=== PATIENT | female | born 1940 | race Caucasian/White ===

== ENCOUNTER 2021-07-07 08:23 | Day surgery (SDC) | payer MEDICARE, BC ==
[~2021-07-07] VITALS: Ht 157.5 cm; Wt 58.2 kg
[2021-07-07 08:38] VITALS: BP 192/82
[2021-07-07] MEDS ORDERED: ESOM40CA49 PO (08:54)
[2021-07-07] MEDS ORDERED: PRAV20TA4 PO (08:54)
[2021-07-07] MEDS ORDERED: ATEN-27 PO (08:54)
[2021-07-07] MEDS ORDERED: BUSP5TAB3 PO (08:54)
[2021-07-07] MEDS ORDERED: LISI5TAB22 PO (08:54)
[2021-07-07] MEDS ORDERED: LOPE-190 PO (08:54)
[2021-07-07] MEDS ORDERED: fentaNYL/PF 50MCG/1 ML 2ML syringe ONE (08:58)
[2021-07-07] MEDS ORDERED: MIDAZolam 1 MG/ML 5ML VIAL ONE (08:58)
[2021-07-07] MEDS ORDERED: LIDOcaine Viscous 15ml cup ONE (08:59)
[2021-07-07 10:39] VITALS: BP 147/78
[2021-07-07 10:49] VITALS: BP 141/78
[2021-07-07 10:59] VITALS: BP 153/84
[2021-07-07 11:09] VITALS: BP 147/79
== END 2021-07-07 11:20 | disposition home or self-care (01) ==
LOC: GI LAB 08:23
PROVIDERS: ATTEND Internal Medicine Gastroenterology
DX: R11.0 Nausea (principal); K92.1 Melena; K44.9 Diaphragmatic hernia without obstruction or gangrene; K31.7 Polyp of stomach and duodenum; K31.89 Other diseases of stomach and duodenum; K29.60 Other gastritis without bleeding; D12.2 Benign neoplasm of ascending colon; D12.5 Benign neoplasm of sigmoid colon; K57.30 Diverticulosis of large intestine without perforation or abscess without bleeding; I10 Essential (primary) hypertension; Z79.899 Other long term (current) drug therapy
CPT/HCPCS: 43239; 45380; 45385; 99153; C1773; G0500; J2250; J3010; J7040; Z7512; 88305; 99152; A4620